=== PATIENT | male | born 1970 | race Caucasian/White ===

== ENCOUNTER 2018-07-18 12:11 | Outpatient (CLI) | payer BC ==
[2015-04-25 12:13] VITALS: BP 124/74
--- NOTE | 2018-07-18 13:07 | Diagnostic Imaging Report ---
ALYSE GABRIEL [facility] [address] [facility] [address] [place], [place]. [address] Report Submission Date: Jul 18, 2018 12:49:45 PM CDT Patient Study Name: ARACELY RESTREPO Date: Jul 18, 2018 12:19:25 PM CDT Modality Type: DX Gender: M Description: CHEST 2VIEW : 70 Institution: [facility] Physician: ALYSE GABRIEL Exam: AP chest. History: Fever and cough. No previous studies are available for comparison. Lung pascual are well aerated without shira consolidation or effusion. Heart and mediastinal contour are normal. Mild degenerative changes in both acromioclavicular joints are noted. Impression: No shira consolidation or effusion. Electronically signed on Jul 18, 2018 12:49:45 PM CDT by: Emmanuel BERRIOS
== END 2018-07-18 12:13 ==
LOC: RAD 12:11
PROVIDERS: ATTEND Family Medicine
DX: R05 Cough (principal); R50.9 Fever, unspecified
CPT/HCPCS: 71046

== ENCOUNTER 2018-07-28 11:51 | Outpatient (CLI) | payer BC ==
[2015-04-25 12:13] VITALS: BP 124/74
== END 2018-07-28 11:57 ==
LOC: LAB 11:51
PROVIDERS: ATTEND Family Medicine
DX: R50.9 Fever, unspecified (principal); R05 Cough
CPT/HCPCS: 87486; 87581; 87633; 87798